=== PATIENT | female | born 1965 | race African-American/Black ===

== ENCOUNTER 2016-07-12 10:35 | Inpatient (IN) ==
--- NOTE | 2016-07-12 11:02 | Emergency Department Note ---
Arrival - Arrival Chief Complaint: Weakness ED Nursing Triage Note: c/o weakness onset this am Mode of Arrival: Stretcher Limitations: No Limitations Source: Patient, Family Time Seen by Provider: 07/12/16 10:57 - History of Present Illness HPI Narrative: This 51-year-old black female presents to weeks post discharge from [facility] where she was diagnosed and treated for pancreatic carcinoma. The patient can give me little information other than the fact that at the time she had a drain placed and is scheduled to be followed up July 21.. She states that she has been in a progressive decline ever since discharge but in a particularly weakened state last 24 hours, unable to get up and ambulate. She denies abdominal pain, nausea, vomiting, chills, or fever. She currently appears chronically ill but in no acute medical distress. Onset (ago): week(s) (patient presents and decline over the last 2 weeks) Consistency: constant Severity: severe Allergies/Adverse Reactions: Allergies Allergy/AdvReac Type Severity Reaction Status Date / Time iodine Allergy HIVES Verified 04/02/16 10:33 Home Medications: Home Medications Medication Instructions Recorded Confirmed Type Docusate Sodium 100 mg PO BID 07/12/16 07/12/16 History HYDROcodone/ACETAMIN 5-325 [[place] 1 tablet PO Q6H PRN 07/12/16 07/12/16 History 5-325] Magnesium Oxide 400 mg PO DAILY 07/12/16 07/12/16 History Potassium Chloride 20 meq PO BID 07/12/16 07/12/16 History Torsemide 20 mg PO BID W/MEALS 07/12/16 07/12/16 History Review of System - Review of System 12 point system: reviewed and no additional remarkable complaints except as stated - Review of System Constitutional: Present: as per HPI Musculoskeletal: Present: as per HPI Neurological: Present: as per HPI Medical,Surgical,& Family Hx - Medical History Cardio: History of: Cardiac Dysrhythmia (irregular heartbeat), Hypertension - Surgical History Cardiac Surgeries: Patient Denies: Cardiac Catheterization Reproductive Surgeries: Surgical HX of;: Tubal Ligation - Family History Family History: Reports;: Family Hypertension (mother) - Social History Smoking Status: Never smoker Frequency of Alcohol Use: None Type of Drug Use: None Exam Physical Examination: GENERAL: Fragile ill-appearing jaundiced black female in no acute distress. HEENT: Normocephalic. No trauma. Moist mucous membranes. EOMI. PERRLA. Scleral icterus NECK: Supple. No adenopathy. CARDIAC: Regular. No murmurs. Heart rate 98 CHEST: Clear to auscultation. No respiratory distress. ABDOMEN: Firm distended abdomen with fluid wave and with hypoactive bowel sounds. Right flank drain draining green liquid. EXTREMITIES: No trauma. Normal ROM. No pedal edema. SKIN: No diaphoresis. No rash. NEURO: Alert. Neuro intact. No asterixis No focal deficits. Vital Signs: Vital Signs Temperature 97.5 F L 07/12/16 10:47 Pulse Rate 98 H 07/12/16 10:47 Respiratory Rate 18 07/12/16 11:00 Blood Pressure 94/63 07/12/16 10:47 O2 Sat by Pulse Oximetry 98 07/12/16 10:47 Course - Reevaluation(s) Reevaluation #1: Discussed with patient need for hospitalization given her advanced degree of disease. - Consultations Consultation #1: Discussed with hospitalist service who will admit for further evaluation treatment. Results - Labs CBC & BMP: 07/12/16 11:40 07/12/16 11:40 Lab Results: I have reviewed the patients labs Labs: I reviewed the laboratory noted the across the board severe abnormalities. - Diagnostic Findings Procedure: Chest x-ray: image reviewed by me, report reviewed by me (bilateral pleural effusions right greater than left otherwise no acute disease), CT Abdomen and Pelvis: image reviewed by me, report reviewed by me (multiple metastases to the liver as well as bilateral pleural effusions and percutaneous drain with tip in the duodenum) Disposition Clinical Impression: metastatic pancreatic CVA, acute renal failure, pancreatitis, anemia, liver metastasis with ascites Case discussed with: patient, patient's family Disposition: Still a Patient Condition: Guarded Time of Disposition: 13:24
[2016-07-12 11:45] LABS: Amorphous Crystals,Urine Occasional /HPF (Few); Apearance,Urine CLOUDY (Clear); Blood, Urine Negative (Negative); Glucose,Urine (UA) Negative (Negative); Ketones,Urine Negative (Negative); Nitrite,Urine Negative (Negative); Protein,Urine 100 MG/DL; Squamous Epithelial Cell,Urine Occasional /HPF (0-10); Urine Color Amber (Yellow); Urine Specific Gravity 1.018 (1.001-1.035); WBC,Urine 4 /HPF (0-6)
[2016-07-12 11:46] LABS: Bilirubin,Urine Moderate mg/dL (Negative)
[2016-07-12 11:54] LABS: Basophils % 0.1 % (0.0-0.8); Eosinophils % 0.1 % (0.00-10.9); Hematocrit 26.7 VOL% (35.7-47.0); Hemoglobin 8.5 GM/DL (12.0-16.0); Immature Granulocytes % 6.6 %; Immature Granulocytes Absolute 1.05 #; Lymphocytes # 0.9 10*3/uL (1.4-4.0); Lymphocytes % 5.9 % (21.3-54.2); Mean Corpuscular HGB Conc 31.8 GM/DL (32-36); Mean Corpuscular Hemoglobin 31 PG (27-34); Mean Corpuscular Volume 97.1 FL (87-102); Monocytes # 0.9 10*3/uL (0.11-0.8); Monocytes % 5.4 % (1.7-12.7); NRBC # 0.26 10*3/uL; Neutrophils # 13.1 10*3/uL (1.4-7.4); Neutrophils % 81.9 % (38.7-73.9); Platelet Count 133 T/CUMM (130-400); Red Blood Count 2.75 MC/CUMM (3.8-5.5)
[2016-07-12 12:14] LABS: Alanine Aminotransferase 199 U/L (13-56); Albumin 1.8 G/DL (3.4-5.0); Alkaline Phosphatase 994 U/L (45-117); Amylase 198 U/L (25-115); Aspartate Amino Transferase 694 U/L (0-37); Blood Urea Nitrogen 72 MG/DL (7-18); Calcium 8.3 MG/DL (8.5-10.1); Glucose 57 MG/DL (74-106); Lactic Acid 6.3 MMOL/L (0.4-2.0); Osmolality,Calculated 297.4 MOS/KG (273-304); Potassium 5.6 MMOL/L (3.5-5.1); Sodium 140 MMOL/L (136-145); Total Protein 8.3 G/DL (6.4-8.3)
[2016-07-12 12:16] LABS: Troponin I Only 0.052 NG/ML (0.00-0.045)
[2016-07-12 12:20] LABS: Band Neutrophils 4 % (0-10); Giant Platelets Few; Hypochromasia 1+; Lymphocytes 5 % (20-55); Nucleated Red Blood Cells 1 (0-5); Platelet Estimate Normal; Segmented Neutrophils 87 % (50-85); Target Cells Few; Total Cells Counted 100
--- NOTE | 2016-07-12 12:34 | XRay Report ---
XR chest 1V portable Indication: Abdominal pain Comparison: None available Findings: The heart and mediastinum are normal in size and configuration. Right internal jugular catheters present with tip overlying superior vena cava right atrial junction. The pulmonary vascularity is normal in caliber. Small right pleural effusion is seen. No other lung infiltrates, effusions, pneumothorax or other abnormality is demonstrated. Impression: Small right pleural effusion. No other acute findings. PROCEDURE INTERPRETED AT [facility] DEPARTMENT OF RADIOLOGY Final Report Signed by: Dr. Otoniel Larson
[2016-07-12] MEDS ORDERED: SODIUM CHLORIDE 0.9% 2,000 ML IV STA (13:03)
--- NOTE | 2016-07-12 13:08 | CT Report ---
Exam: CT abdomen pelvis w/o con Date: 07/12/2016 10:59 AM Comparison: 04/02/2016 Indication: Abdominal pain and pelvic pain and history of pancreatic cancer Total DLP: 433.4 mGy*cm Technical: Oral contrast was administered. Images were obtained from the lung bases to the iliac crest continuation through the pelvis without the use of intravenous contrast with axial sagittal coronal imaging available for review. Dose reduction was performed with decreasing kv and mA and automated exposure Findings: Lung bases: No obvious infiltrate or exam reveals bilateral basilar pleural effusions and atelectatic change present. Catheter is present in the superior vena cava right atrial junction. Liver and Spleen: Diffuse inhomogeneity within the liver and are multiple mass lesions not otherwise clarified with mild pneumobilia present. PTC catheter/biliary drain The spleen is unremarkable Gallbladder and Pancreas: Gallbladder is unremarkable. A PTC catheter biliary drain catheter is present with the distal tip in the region of the duodenum traversing the liver and common bile duct . Low density present in the mid body of the pancreas. Adrenals: Unremarkable Kidneys: No obvious focal amounts in the kidneys. Stomach: Partially distended with oral contrast and air fluid and debris Retroperitoneum: No enlarged lymph nodes. Aorta and IVC: No obvious aneurysm. Mild atherosclerotic plaque present in the aorta the aorta and IVC without contrast not otherwise evaluated. Bowel and Mesentery: Ascites is present. Free-floating bowel present. No obvious obstruction present. Fluid and debris in the subcutaneous fat with small ventral hernia present Pelvis: Bladder: Incompletely distended with fluid Fluid: Large amount of ascites present. Lymph nodes: No enlarged lymph nodes. Pelvic organs: Uterus is midline. Small calcifications in the left adnexa. No ovarian mass lesions clearly seen Osseous structures: Degenerative changes present lumbar thoracolumbar spine. Impression: 1. Large from ascites present. 2. Multiple low densities present in the liver that suggest metastatic disease within the liver not otherwise clarified on the noncontrast study. 3. Percutaneous pleural drainage catheter in place with the distal tip in the duodenum traversing the bile ducts. 4. Ventral hernia present 5. Degenerative spondylosis changes thoracolumbar spine and facet arthropathy. 6. Subcutaneous edema present bilaterally 7. Bilateral basal pleural effusions and atelectatic change PROCEDURE INTERPRETED AT [facility] DEPARTMENT OF RADIOLOGY Final Report Signed by: Dr. David Keller
[2016-07-12] MEDS ORDERED: ACETAMINOPHEN 325 MG TABLET PO PRN (13:46)
[2016-07-12] MEDS ORDERED: DOCUSATE SODIUM 100 MG CAPSULE PO PRN (13:46)
[2016-07-12] MEDS ORDERED: ZALEPLON 5 MG CAPSULE PO PRN (13:46)
[2016-07-12] MEDS ORDERED: MORPHINE 2 MG/1 ML SYRINGE ONE (14:12)
[2016-07-12] MEDS ORDERED: ONDANSETRON 4 MG/2 ML VIAL ONE (14:12)
[2016-07-12] MEDS: MORPHINE 2 MG/1 ML SYRINGE IV PRN (14:21)
[2016-07-12] MEDS: ONDANSETRON 4 MG/2 ML VIAL IV PRN (14:21)
[2016-07-12] MEDS ORDERED: ENOXAPARIN 30 MG/0.3 ML SYRINGE SUBCUT SCH (15:00)
--- NOTE | 2016-07-12 15:22 | Event Note ---
Patient seen and examined. Case discussed with nurse practitioner and agree with her evaluation assessment and plan. This is an unfortunate 51-year-old -[place]oz[place] female who appears to have metastatic pancreatic cancer. She also hadn't perforated gallbladder in January for which she has a cholecystostomy tube. She subsequently has been at [facility] being diagnosed with pancreatic cancer. It seems that she may have been offered some type of chemotherapy either palliative but she was too weak to get it. The CAT scan today shows possible metastatic disease in the liver however this is a CT without IV contrast.. She resents today with worsening abdominal distention and is clinically jaundiced. We will try to control her pain. She has worsening renal dysfunction and we will try to hydrate her although it certainly would end up in her belly. Hold her diuresis for now. She may be getting a complex hepatorenal syndrome. We will consult oncology although she may be a good candidate for hospice. Certainly paracentesis may help her clinically but I'm not sure if this is causing all her symptoms as the ascites is not very tense.
--- NOTE | 2016-07-12 15:35 | Hospitalist History & Physical ---
<Tesha Nieves - Last Filed: 07/12/16 15:15> Assessment and Plan - Time spent with patient Time spent with patient: Greater than 30 minutes (due to assessment, plan and doc) (1) Pancreatic cancer Status: Acute Assessment and plan: consult Dr. Washington Jorgensen pain control IVF's @ 75 cc/hr Current Visit: Yes (2) Anemia Status: Acute Current Visit: No (3) Jaundice Status: Acute Current Visit: Yes History of Present Illness Chief complaint: abdominal swelling History of present illness: Ms. Ron is a 51 year old female who presents to the ED today after her abdomen began to swell yesterday. She has a diagnosis of Pancreatic carcinoma in January of last year and was transferred to [facility] for further evaluation. She has a drain to her gallbladder that she states was placed at [facility] in March and is to have pulled in July. She is markedly jaundice, abdomen is distended and with ascites. She is hypotensive at the time at 90/60s. She states that she does not have an Oncologist in [place]. We will consult Dr. Washington Jorgensen who is communication arts lecturer for Heme/Onc today. CT abdomen pelvis in the Er showed "large from ascites, multiple low densities present in the liver that suggest metastatic liver disease" She will be admitted, put on Fluids at 75 cc/ hr, Consult Oncology, pain control. Consider IR consult for possible paracentesis. Further plan and addendum to follow by Dr. Del Linares. Home Medications Medication Instructions Recorded Confirmed Type Docusate Sodium 100 mg PO BID 07/12/16 07/12/16 History HYDROcodone/ACETAMIN 5-325 [[place] 1 tablet PO Q6H PRN 07/12/16 07/12/16 History 5-325] Magnesium Oxide 400 mg PO DAILY 07/12/16 07/12/16 History Potassium Chloride 20 meq PO BID 07/12/16 07/12/16 History Torsemide 20 mg PO BID W/MEALS 07/12/16 07/12/16 History Allergies Allergy/AdvReac Type Severity Reaction Status Date / Time iodine Allergy HIVES Verified 04/02/16 10:33 Medical,Surgical,& Family Hx - Medical History Cardio: History of: Cardiac Dysrhythmia (irregular heartbeat), Hypertension - Surgical History Cardiac Surgeries: Patient Denies: Cardiac Catheterization Reproductive Surgeries: Surgical HX of;: Tubal Ligation - Family History Family History: Reports;: Family Hypertension (mother) - Social History Smoking Status: Never smoker Frequency of Alcohol Use: None Type of Drug Use: None Marital Status: Unknown Lives With:: Alone Functional capacity: independent ambulation - Constitutional Constitutional: Present: weakness. Absent: chills, fever(s) - EENT Eyes: Absent: blurry vision, diplopia Ears: Absent: decreased hearing, tinnitus Nose, mouth and throat: Absent: dysphagia, headache(s) - Cardiovascular Cardiovascular: Present: dyspnea. Absent: chest pain at rest - Respiratory Respiratory: Present: dyspnea. Absent: cough, hemoptysis - Gastrointestinal Gastrointestinal: Present: abdominal pain. Absent: nausea, vomiting - Genitourinary Genitourinary: Absent: dysuria, hematuria - Musculoskeletal Musculoskeletal: Absent: arthralgias, joint swelling - Neurological Neurological: Absent: confusion, dizziness - Psychiatric Psychiatric: Absent: anxiety, confusion, depression - Endocrine Endocrine: Absent: cold intolerance, heat intolerance - Hematologic/Lymphatic Hematologic/Lymphatic: Absent: easy bleeding, easy bruising Exam - Constitutional Vitals: Period Temp Pulse Resp BP Sys/Guidry Pulse Ox Last 24 Hr 72-76 22-22 93-110/61-65 91-92 General appearance: normal weight, no acute distress - Head Head exam: Present: normal inspection, normocephalic - Eye Eye exam: Present: EOMI. Absent: scleral icterus Pupils: Present: LAUREN, normal accommodation - ENT ENT exam: Present: normal exam, normal oropharynx - Neck Neck exam: Present: normal inspection. Absent: lymphadenopathy - Respiratory Respiratory exam: Present: clear to auscultation bilaterally. Absent: accessory muscle use - Cardiovascular Cardiovascular exam: Present: regular rate and rhythm. Absent: carotid bruit - GI/Abdominal GI/Abdominal exam: Present: normal bowel sounds, ascites, distended - Extremities Exam Extremities exam: Present: normal inspection. Absent: edema - Back Exam Back exam: Present: normal inspection. Absent: muscle spasm - Neurological Exam Neurological exam: Present: alert, oriented X3 - Psychiatric Psychiatric exam: Present: normal affect, normal mood - Skin Skin exam: Present: normal color, warm, dry, intact Results - Labs CBC & BMP: 07/12/16 11:40 07/12/16 11:40 Lab Results: I have reviewed the past 24 hour labs <Del Linares - Last Filed: 07/12/16 16:18> History of Present Illness History of present illness: Ms. Ron is a 51 year old female Patient seen and examined. Case discussed with nurse practitioner and agree with her evaluation assessment and plan. This is an unfortunate 51-year-old -[place]ian female who appears to have metastatic pancreatic cancer. She also hadn't perforated gallbladder in January for which she has a cholecystostomy tube. She subsequently has been at [facility] being diagnosed with pancreatic cancer. It seems that she may have been offered some type of chemotherapy either palliative but she was too weak to get it. The CAT scan today shows possible metastatic disease in the liver however this is a CT without IV contrast.. She resents today with worsening abdominal distention and is clinically jaundiced. We will try to control her pain. She has worsening renal dysfunction and we will try to hydrate her although it certainly would end up in her belly. Hold her diuresis for now. She may be getting a complex hepatorenal syndrome. We will consult oncology although she may be a good candidate for hospice. Certainly paracentesis may help her clinically but I'm not sure if this is causing all her symptoms as the ascites is not very tense. Exam - Constitutional Vitals: Period Temp Pulse Resp BP Sys/Guidry Pulse Ox Last 24 Hr 72-76 22-22 93-110/61-65 91-92 Results - Labs CBC & BMP: 07/12/16 11:40 07/12/16 11:40
--- NOTE | 2016-07-12 16:10 | Ultrasound Report ---
US paracentesis abd w/image Indication: Ascites. History of pancreatic cancer. Ultrasound-guided paracentesis Description: A formal timeout was performed. Maximum sterile barrier technique was used. The right lower quadrant was prepped and draped in sterile fashion. Under sonographic guidance, a 6 [place] pigtail catheter was advanced into the ascites using trocar technique. A captured sonographic image documents needle position. The needle was removed. Through the catheter, we obtained a total of 1200 cc of straw-colored ascites. No additional fluid could be obtained. Therefore, the catheter was removed. A bandage was placed at the puncture site. The patient tolerated the procedure well. Impression: Ultrasound-guided paracentesis. PROCEDURE INTERPRETED AT [facility] DEPARTMENT OF RADIOLOGY Final Report Signed by: Rob Salazar M.D.
--- NOTE | 2016-07-12 16:43 | EKG Report ---
Stationary ECG Study [facility] ER Test Date: 07/12/2016 4:41:46 PM Pat Name: BAILEY PANIAGUA Department: Room: 218 Gender: F Relief Salesperson: : 1965 Requested by: Paulo Chaves Order Number: [id number] Reading MD: JAYSON BURNHAM Intervals [place] Rate: 93 P: 62 AR: 140 QRS: 65 QRSD: 91 T: 73 QT: 437 QTc: 487 Interpretive Statements SINUS RHYTHM PROLONGED QT INTERVAL Electronically Signed On 07-14-16 20:07:22 SMALL ENGINE MECHANIC by JAYSON BURNHAM [email or web address]
[2016-07-12] MEDS ORDERED: TORSEMIDE 20 MG TABLET PO SCH (17:00)
[2016-07-12] MEDS: SODIUM CHLORIDE 0.9% 1,000 ML IV SCH (17:43)
[2016-07-12] MEDS ORDERED: ALBUMIN 25% 50 GM in PREMIX 1 EACH IV ONE (17:49)
[2016-07-12 17:52] LABS: Neutrophils,Peritoneal Fluid 52 %; RBC,Peritoneal Fluid 696 T/CUMM
[2016-07-12] MEDS: PIPERACILLIN/TAZOBACTAM 3,375 MG in SODIUM CHLORIDE 0.9% 100 ML IV SCH (18:15)
[2016-07-12] MEDS: DOPamine 800 MG/250 ML PREMIX IV SCH (18:15)
[2016-07-12 18:55] LABS: Apearance,Urine CLOUDY (Clear); Bilirubin,Urine Negative (Negative); Blood, Urine Moderate mg/dL (Negative); Glucose,Urine (UA) Negative (Negative); Ketones,Urine Negative (Negative); Nitrite,Urine Negative (Negative); Protein,Urine 100 MG/DL; RBC,Urine 471 /HPF (0-4); Urine Color Amber (Yellow); Urine Specific Gravity 1.009 (1.001-1.035); Urine Urobilinogen < 2.0 EU/DL (0.2-1.0); WBC,Urine 67 /HPF (0-6)
[2016-07-12] MEDS ORDERED: POTASSIUM CHLORIDE 20 MEQ TABLET PO SCH (21:00)
[2016-07-13] MEDS: MORPHINE 2 MG/1 ML SYRINGE IV PRN ×3 (00:05→13:25)
[2016-07-13 02:59] LABS: Basophils % 0.1 % (0.0-0.8); Eosinophils % 0.1 % (0.00-10.9); Hematocrit 22.6 VOL% (35.7-47.0); Hemoglobin 6.8 GM/DL (12.0-16.0); Immature Granulocytes % 11.8 %; Immature Granulocytes Absolute 1.64 #; Lymphocytes # 1.1 10*3/uL (1.4-4.0); Lymphocytes % 7.7 % (21.3-54.2); Mean Corpuscular HGB Conc 30.1 GM/DL (32-36); Mean Corpuscular Hemoglobin 31 PG (27-34); Mean Corpuscular Volume 102.3 FL (87-102); Mean Platelet Volume 11.7 FL (9.6-12.0); Monocytes # 1.3 10*3/uL (0.11-0.8); Monocytes % 9.5 % (1.7-12.7); NRBC # 0.54 10*3/uL; Neutrophils # 9.9 10*3/uL (1.4-7.4); Neutrophils % 70.8 % (38.7-73.9); Platelet Count 102 T/CUMM (130-400); Red Blood Count 2.21 MC/CUMM (3.8-5.5); Red Cell Distribution Width 23.3 % (9.3-17.3); White Blood Count 13.9 T/CUMM (4-12)
[2016-07-13 03:33] LABS: Band Neutrophils 7 % (0-10); Lymphocytes 9 % (20-55); Nucleated Red Blood Cells 2 (0-5); Segmented Neutrophils 79 % (50-85); Total Cells Counted 100
[2016-07-13 03:34] LABS: Hypochromasia 2+; Microcytosis 1+; Platelet Estimate Adequate; Polychromasia Slight
[2016-07-13 03:36] LABS: Target Cells Slight
[2016-07-13 04:30] LABS: Albumin 2.3 G/DL (3.4-5.0); Calcium 7.4 MG/DL (8.5-10.1); Osmolality,Calculated 301.1 MOS/KG (273-304); Total Protein 7.1 G/DL (6.4-8.3)
[2016-07-13 04:32] LABS: Bilirubin,Total 15.5 MG/DL (0.2-1.0)
[2016-07-13 04:33] LABS: Potassium 6.5 MMOL/L (3.5-5.1)
[2016-07-13] MEDS ORDERED: SODIUM POLYSTYRENE SULFATE 15 GM/60 ML BOTTLE PO ONE (04:33)
[2016-07-13] MEDS: DEXTROSE 50% 25 GM/50 ML VIAL IV PRN ×3 (04:38→11:52)
[2016-07-13] MEDS: SODIUM CHLORIDE 0.9% 1,000 ML IV SCH ×2 (04:46→17:53)
[2016-07-13] MEDS: ONDANSETRON 4 MG/2 ML VIAL IV PRN ×3 (04:47→13:25)
[2016-07-13] MEDS ORDERED: PROMETHAZINE 25 MG/1 ML VIAL IM PRN (04:58)
[2016-07-13] MEDS ORDERED: PROMETHAZINE 25 MG/1 ML VIAL ONE (04:59)
--- NOTE | 2016-07-13 08:00 | Oncology Consult Note ---
Assessment and Plan - Time spent with patient Time spent with patient: Greater than 30 minutes (1) Liver metastases Status: Acute Current Visit: Yes (2) Anemia Status: Acute Current Visit: No (3) Pancreatic cancer Status: Acute Current Visit: Yes (4) Jaundice Status: Acute Current Visit: Yes History of Present Illness History of present illness: Ms. Ron is a 51 year old female with metastatic pancreatic cancer involving the liver. She's been followed at [facility] since her diagnosis in the fall of 2015. It appears that she has not been a candidate for any type of treatment since her diagnosis. One sister thinks it was secondary to her poor kidney function. She was admitted yesterday through the emergency room for weakness and failure to thrive. She was found to be informed of liver failure, renal failure , emaciated, and with ascites. CT scan showed numerous liver lesions. Oncology was consulted to assist with her care and treatment plan. I had a lengthy discussion with Ms. Ron this morning. I explained to her that her cancer is very advanced and there are no treatment options for her given her liver failure and renal failure. I encouraged her to be DNR and only be managed with supportive measures at this point. I'm also explained this to her sister's via telephone conversation after I talked with Mrs. Ron. I do not anticipate her ever gaining enough strength to return home. But if she does , I strongly encourage home hospice. There is very little that oncology can offer in her situation. Given that her liver failure and renal failure has worsened overnight, she may not survive but a few more days. She requested to go home to be as family as soon as possible. I told her that I ensure that everyone would do their best to make that happen, but I'm not sure if she will ever be in the physical shape to be discharged home. She has a percutaneous biliary drain in place but I do not see any long-term benefit and replacing this. Regardless of whether this catheter began to drain, her prognosis remains very poor I do not see her ever becoming a candidate for palliative therapy. Home Medications Medication Instructions Recorded Confirmed Type Docusate Sodium 100 mg PO BID 07/12/16 07/12/16 History HYDROcodone/ACETAMIN 5-325 [[place] 1 tablet PO Q6H PRN 07/12/16 07/12/16 History 5-325] Magnesium Oxide 400 mg PO DAILY 07/12/16 07/12/16 History Potassium Chloride 20 meq PO BID 07/12/16 07/12/16 History Torsemide 20 mg PO BID W/MEALS 07/12/16 07/12/16 History Allergies Allergy/AdvReac Type Severity Reaction Status Date / Time iodine Allergy HIVES Verified 04/02/16 10:33 Medical,Surgical,& Family Hx - Medical History Cardio: History of: Cardiac Dysrhythmia (irregular heartbeat), Hypertension Renal: History of: Renal Failure Gastrointestinal: History of: Liver Problems - Surgical History Cardiac Surgeries: Patient Denies: Cardiac Catheterization Reproductive Surgeries: Surgical HX of;: Tubal Ligation - Family History Family History: Reports;: Family Hypertension (mother) - Social History Smoking Status: Never smoker Frequency of Alcohol Use: None Type of Drug Use: None 12 point system: reviewed and no additional remarkable complaints except as stated Exam - Constitutional Vitals: Period Temp Pulse Resp BP Sys/Guidry Pulse Ox Last 24 Hr 97.0 F-97.8 F 72-112 22-40 60-117/33-94 91-100 General appearance: normal weight, mild distress - Head Head Exam: Present: normocephalic, atraumatic - Eye Eye Exam: Present: EOMI, scleral icterus Pupils: Present: PERRL - Neck Neck exam: Absent: lymphadenopathy, thyromegaly - Respiratory Respiratory exam: Present: CTAB. Absent: wheezes - Cardiovascular Cardiovascular exam: Present: RRR. Absent: JVD, systolic murmur - GI/Abdominal GI/Abdominal exam: Present: ascites, soft. Absent: distended, firm, mass - Neurological Exam Neurological exam: Present: alert, oriented X3 - Psychiatric Psychiatric exam: Present: depressed, flat affect - Skin Skin exam: Present: warm, dry Results - Labs CBC & BMP: 07/13/16 02:40 07/13/16 02:40 Lab Results: I have reviewed the past 24 hour labs - Diagnostic Findings Procedure: CT Abdomen and Pelvis: report reviewed by me
[2016-07-13] MEDS ORDERED: PANTOPRAZOLE 40 MG TABLET PO SCH (09:00)
[2016-07-13] MEDS ORDERED: MAGNESIUM OXIDE 400 MG TABLET PO SCH (09:00)
--- NOTE | 2016-07-13 10:13 | Hospitalist Progress Note ---
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 Currently has ascites and new hepatic ( metastatic) lesions. Has biliary drainage but no viable oncologic options, with hepatic and renal dysfunction. 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 To [facility] and appears diagnosis was pancreatic carcinoma without viable treatment options. She has a chlostomy tube inplace and presented with abdominal distension with CT abdomen showing ascites and focal hepatic lesions. In January her renal function was normal, she now has markedly depressed GFR with renal tubular acidosis. Her alkaline phosphatase has doubled since January with total bilirubin increased by a factor of three. 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 Exam - Constitutional Vitals: Period Temp Pulse Resp BP Sys/Guidry Pulse Ox Last 24 Hr 96.8 F-97.8 F 72-112 22-40 60-117/33-94 91-100 General appearance: under weight - Eye Eye exam: Present: scleral icterus - Respiratory Respiratory exam: Present: clear to auscultation bilaterally. Absent: rales, rhonchi, wheezes - Cardiovascular Cardiovascular exam: Present: regular rate and rhythm - GI/Abdominal GI/Abdominal exam: Present: ascites, tenderness - Extremities Exam Extremities exam: Absent: edema - Neurological Exam Neurological exam: Present: alert (easily drifts off), oriented X3 - Psychiatric Psychiatric exam: Present: depressed Results - Labs CBC & BMP: 07/13/16 02:40 07/13/16 02:40 Labs: Total bilirubin 15.5 Albumen 2.3
[2016-07-13] MEDS: PIPERACILLIN/TAZOBACTAM 3,375 MG in SODIUM CHLORIDE 0.9% 100 ML IV SCH (10:17)
[2016-07-13] MEDS: DOPamine 800 MG/250 ML PREMIX IV SCH ×2 (13:25→19:07)
[2016-07-13 19:06] VITALS: BP 39/28
--- NOTE | 2016-07-14 11:37 | Physician Query Form ---
CLICK EDIT DOCUMENT TO SELECT QUERY ANSWER --> OK --> SIGN Meli Ramon RN Clinical Furniture Builder W) [phone] (f) [phone] [email or web address] PROVIDERS: Make your selection(s) from the choices in EACH section by typing an "x" and enter comments in the comment section. Please use your independent medical judgment in providing your response. This request does not imply that any particular answer is desired or expected. CLINICAL INDICATORS: (Providers should not edit this section) Based on documentation of "liver failure" and "Her alkaline phosphatase has doubled since January with total bilirubin increased by a factor of three". Please clarify the acuity of the liver failure. Clarify which of the following accurately represents the acuity of the above diagnosis. (x ) Acute ( ) Acute on chronic ( ) Chronic stable condition ( ) Remission ( ) Other, please specify: ( ) Clinically unable to determine COMMENTS: Use of terms such as suspected, likely, or probable (associated with a specific diagnosis that is being evaluated, monitored, or treated as if it exists) are acceptable and can be restated in the discharge summary if not ruled out. [facility]
--- NOTE | 2016-07-14 12:35 | Discharge Summary ---
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 Referred to [facility] where she was not felt to be treatable beyond placement of a cholecystomy tube. She presented here with ascites, new hepatic implants with hepatic and renal failure. Hepatic markers had progressed substantially from here initial presentation. The patient received supportive care with family consensus to avoid heroic measures, expiring without resuscitative efforts. Diagnosis - Discharge Diagnosis (1) Pancreatic cancer Status: Chronic Discharge Plan - Discharge Medications No Action HYDROcodone/ACETAMIN 5-325 [[place]agg[place] 5-325] 1 tablet PO Q6H PRN PRN Reason: Pain Docusate Sodium 100 mg PO BID Torsemide 20 mg PO BID W/MEALS Magnesium Oxide 400 mg PO DAILY Potassium Chloride 20 meq PO BID - Follow Up or Referral - Forms/Instructions Exam - Constitutional Vitals: Period Temp Pulse Resp BP Sys/Guidry Pulse Ox Last 24 Hr 55-87 15-37 39-97/26-56 92-100 Discharge Results Procedures and tests throughout hospitalization: Pending Orders 07/12/16 Urine Culture Routine Labs on day of discharge: Labs from last 24 hours 07/13/16 07/13/16 16:11 14:14 POC Glucose 88 130 H Preliminary micro results at discharge 07/12/16 Unknown Urine Culture - Preliminary Urine,Catheterized Gram Positive Cocci DS: Provider Date of admission: 07/12/16 13:46 Primary care physician: . No PCP Attending physician on admission: Del Linares MD Consults: 07/12/16 13:59 Consult to Physician [CONS] Routine Comment: pancreatic ca, has been seen at [facility], but no MD her Consulting Provider: Nitin Jorgensen Date Notified: 07/12/16 Time Notified: 15:41 Consult Notification Comment: Spoke with Dr. Jorgensen Office. aware 07/12/16 15:08 Consult to Pharmacy [CONS] Routine Reason for Pharmacy Consult: Adjust Meds Renal Funct 07/12/16 17:25 Consult to Dietitian [CONS] Routine Reason for Dietitian: Other Consult Comment: admission wt loss Discharging clinician: Álvaro Verma MD
--- NOTE | 2016-07-15 13:54 | Physician Query Form ---
CLICK EDIT DOCUMENT TO SELECT QUERY ANSWER --> OK --> SIGN Meli Ramon RN Clinical Correspondence Clerk W) [phone] (f) [phone] [email or web address]: Make your selection(s) from the choices in EACH section by typing an "x" and enter comments in the comment section. Please use your independent medical judgment in providing your response. This request does not imply that any particular answer is desired or expected. 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 ( ) Malnutrition ( ) mild ( ) moderate ( ) severe ( ) Protein calorie malnutrition ( ) mild ( ) moderate ( ) severe (x ) Emaciation due to malnutrition ( ) Nutritional marasmus ( ) Cachexia ( ) Underweight ( ) No nutritional deficiency ( ) Other, please specify: ( ) Clinically unable to determine Mild Malnutrition (BMI < 18.5, % Normal Body Weight 85-95%) Moderate Malnutrition (BMI < 17, % Normal Body Weight 75-85%) Severe Malnutrition (BMI < 16, % Normal Body Weight < 75%) Source: Esther COMMENTS: Use of terms such as suspected, likely, or probable (associated with a specific diagnosis that is being evaluated, monitored, or treated as if it exists) are acceptable and can be restated in the discharge summary if not ruled out. MTDD
--- NOTE | 2016-07-15 14:00 | Physician Query Form ---
CLICK EDIT DOCUMENT TO SELECT QUERY ANSWER --> OK --> SIGN Meli Ramon RN Clinical Genetic Engineer W) [phone] (f) [phone] [email or web address]: Make your selection(s) from the choices in EACH section by typing an "x" and enter comments in the comment section. Please use your independent medical judgment in providing your response. This request does not imply that any particular answer is desired or expected. CLINICAL INDICATORS: (Providers should not edit this section) Based on documentation of "renal failure", creatinine of 4.80 with a GFR of 12 on admission. Last creatinine on 04/02/16 was 1.70. Pt. treated with IV fluids of Normal Saline. Clarify which of the following most accurately represents the patient's renal status: ( x) Acute kidney injury (non-traumatic) ( ) Acute renal failure ( ) Acute renal failure with underlying Chronic Kidney Disease (CKD) - please provide stage below ( ) CKD - please provide stage below ( ) Other, please specify: ( ) Clinically unable to determine Chronic Kidney Disease Stages Source: [employer] ( ) Stage I (eGFR > or = 90) ( ) Stage II (eGFR 60 - 89) ( ) Stage III (eGFR 30 - 59) ( ) Stage IV (eGFR 15 - 29) ( ) Stage V (eGFR < 15 or dialysis) COMMENTS: Use of terms such as suspected, likely, or probable (associated with a specific diagnosis that is being evaluated, monitored, or treated as if it exists) are acceptable and can be restated in the discharge summary if not ruled out. MTDD
== END 2016-07-13 19:13 | disposition expired | DRG 435 ==
LOC: EDUNIT# → EDBD → N.ED 10:35 → N.EDINP 13:46 → N.2E 14:56 → N.ICU 18:19
PROVIDERS: ADMIT Internal Medicine; ATTEND Internal Medicine